=== PATIENT | male | born 1955 ===

== ENCOUNTER 2017-09-21 19:38 | Emergency (ER) | payer SELFPAY ==
--- NOTE | 2017-11-27 09:15 | UC ---
Avery Suero Gabriel, scribed for Analilia Reid MD on 09/21/17 at 2009 . Dental HPI - HPI Summary HPI Summary: This patient is a 62 year old M presenting to [facility] with a chief complaint of inflamed gums in the left lower side of his mouth that began a week ago after he flossed. The patient rates the pain 3/10 in severity. Patient reports gum pain and trouble eating due to pain. Patient denies fever and drainage. Pt has tried numbing medication but it has not helped. Pt had teeth xrays 6 weeks ago. - History of Current Complaint Chief Complaint: UCDentalProblem Stated Complaint: SOFT TISSUE Time Seen by Provider: 09/21/17 19:58 Hx Obtained From: Patient Onset/Duration: Lasting Weeks, Still Present Severity: Mild Pain Intensity: 3 Pain Scale Used: 0-10 Numeric - Allergies/Home Medications Allergies/Adverse Reactions: Allergies Allergy/AdvReac Type Severity Reaction Status Date / Time No Known Allergies Allergy Verified 09/21/17 19:50 Home Medications: Home Medications Asthma Med* 09/21/17 [History] Atorvastatin* [Lipitor 10 MG*] 09/21/17 [History] Bp Med* 09/21/17 [History] Inhaler* DAILY 09/21/17 [History] Otc Antihistamine* 09/21/17 [History] Rescue Inhaler* 09/21/17 [History] PMH/Surg Hx/FS Hx/Imm Hx Previously Healthy: Yes Endocrine History: Other Other Endocrine History: vertigo Cardiovascular History: Hypertension, Other Other Cardiovascular History: HLD Respiratory History: Asthma - Surgical History Surgical History: Yes Surgery Procedure, Year, and Place: LEFT KNEE MENISCECTOMY - Family History Known Family History: Positive: Hypertension - Social History Lives: With Family Alcohol Use: Occasionally Alcohol Amount: "MUCH TO MUCH" Substance Use Type: None Smoking Status (MU): Never Smoked Tobacco Review of Systems Constitutional: Negative - fever ENT: Dental Pain, Other - gum swelling All Other Systems Reviewed And Are Negative: Yes Physical Exam - Summary Physical Exam Summary: Appearance: Well-Nourished Eye Exam: Normal Neck: Normal, No adenopathy appreciated Respiratory Exam: Normal, no dyspnea, no tachypnea, normal respiratory rate Cardiovascular Exam: Normal Cardiovascular: Heart rate regular, good general skin color, good capillary refill Abdominal Exam: Normal Abdomen Description: Nontender, No Organomegaly, Soft Bowel Sounds: Present Musculoskeletal Exam: Normal Musculoskeletal: Strength Intact Neurological Exam: Normal: nonfocal, grossly intact Psychological Exam: Normal: conversing easily and appropriately Skin Exam: Normal: no visible or reported rash Triage Information Reviewed: Yes Vital Signs: Initial Vital Signs Temp 97.5 F 09/21/17 19:44 Pulse 88 09/21/17 19:44 Resp 16 09/21/17 19:44 BP 142/94 09/21/17 19:44 Pulse Ox 97 09/21/17 19:44 Vital Signs Reviewed: Yes Eye Exam: Normal ENT Exam: Other - see dental ENT: Positive: TM dull Dental Exam: Other - + gingival inflammation and irritation. Tongue not elevated. No amaya sores. Tooth area tender, + lingual swelling. No facial rash, mild swelling. Neck supple. Neck exam: Normal Neck: Positive: Supple, Nontender, No Lymphadenopathy Respiratory Exam: Normal Cardiovascular Exam: Normal Abdominal Exam: Normal Musculoskeletal Exam: Normal Neurological Exam: Normal - grossly nonfocal Dental Complaint Course/Dx - Course Course Of Treatment: Reviewed with Mr. Farfan coa / tx plan. He will f/u with pcp and dental specialist. Questions as posed answered to the best of my ability. - Differential Dx/Diagnosis Provider Diagnoses: Dental abscess. Gingivitis. HTN Discharge - Sign-Out/Discharge Documenting (check all that apply): Patient Departure - Discharge Plan Condition: Stable Disposition: HOME Prescriptions: Amoxicillin/Clavulanate TAB* [Augmentin TAB 875*] 875 mg PO BID #14 tab Chlorhexidine MOUTHWASH 0.12%* [Peridex Mouth Wash 0.12%*] 15 ml .SEE ORDER QID #1 bottle Patient Education Materials: Dental Abscess (ED), Gingivitis (ED) Referrals: No Primary Care Phys,NOPCP [Primary Care Provider] - Additional Instructions: Your blood pressure was elevated during today's visit, 142/94. Please follow up with your primary care provider in 1-2 weeks. Seek medical attention for worse or new problems. Change your toothbrush. Change your toothpaste. Local Dentist - Glenn Espinosa. [phone] [place] [address] - Billing Disposition and Condition Condition: STABLE Disposition: Home The documentation as recorded by the scribe, Varela,Zackary accurately reflects the service I personally performed and the decisions made by me, Analilia Reid MD.
== END 2017-09-21 20:29 | disposition home or self-care (01) ==
LOC: UCEAST 19:38
DX: K04.7 Periapical abscess without sinus (principal); K05.10 Chronic gingivitis, plaque induced; I10 Essential (primary) hypertension; R42 Dizziness and giddiness; E78.5 Hyperlipidemia, unspecified; J45.909 Unspecified asthma, uncomplicated; Z82.49 Family history of ischemic heart disease and other diseases of the circulatory system
CPT/HCPCS: 99202; G0463